=== PATIENT | male | born 1945 | race Caucasian/White ===

== ENCOUNTER 2024-07-23 05:35 | Day surgery (SDC) | payer MEDICARE, BC ==
[2024-07-14 12:06] LABS: BASOPHILS % (AUTO) 0.7 % (0-1); EOSINOPHILS # (AUTO) 0.1 X10'3 (0-0.9); EOSINOPHILS % (AUTO) 1.9 % (0-6); LYMPHOCYTES % (AUTO) 30.2 % (21-51); MEAN CORPUSCULAR HEMOGLOBIN 30.1 PG (27.0-31.0); MEAN CORPUSCULAR HGB CONC 33.2 g/dL (33.0-36.5); MEAN CORPUSCULAR VOLUME 90.5 FL (78-98); MEAN PLATELET VOLUME 8.8 FL (7.4-10.4); MONOCYTES # (AUTO) 0.6 X10'3 (0-0.9); MONOCYTES % (AUTO) 9.9 % (2-12); NEUTROPHILS # (AUTO) 3.8 X10'3 (1.8-7.7); NEUTROPHILS % (AUTO) 57.3 % (42-75); PRE OP HEMATOCRIT 41.5 % (42.0-52.0); PRE OP HEMOGLOBIN 13.8 g/dL (14.0-17.9); PRE OP PLATELET COUNT 214 X10'3 (140-440); PRE OP WHITE BLOOD COUNT 6.5 10'3 (4.8-10.8); RED BLOOD COUNT 4.58 X10'6 (4.70-6.10); RED CELL DISTRIBUTION WIDTH 14.5 % (11.5-14.5)
[2024-07-14 12:18] LABS: ALBUMIN 3.5 G/DL (3.4-5.0); ALBUMIN/GLOBULIN RATIO 1.1 (1.1-1.5); ALKALINE PHOSPHATASE 63 IU/L (46-116); BLOOD UREA NITROGEN 14 MG/DL (7-18); BUN/CREATININE RATIO 18.7 (10.0-20.0); CHLORIDE 109 MMOL/L (99-107); CREATININE 0.75 MG/DL (0.60-1.10); PRE OP ALT 18 U/L (30-65); PRE OP ANION GAP 9 (8-16); PRE OP AST 15 U/L (10-37); PRE OP BILIRUB, TOTAL 0.4 MG/DL (0.0-1.0); PRE OP GLUCOSE 91 MG/DL (70-104); PRE OP POTASSIUM 4.3 MMOL/L (3.4-5.1); PRE OP SODIUM 142 MMOL/L (135-145); TOTAL CARBON DIOXIDE 24.2 MMOL/L (24-32); TOTAL PROTEIN 6.8 G/DL (6.4-8.2); eGFR > 90 ML/MIN
[2024-07-23] VITALS (31 sets, daily range): BP systolic 95–164; BP diastolic 37–94; PULSE 17–85; RESP 13–18; TEMP 96.9–98.2; O2SAT 89–98
[~2024-07-23] VITALS: Ht 190.5 cm; Wt 90.5 kg
[~2024-07-23 05:35] MED LIST: ASCO100031 PO; ASPI-611 PO; ERGO400C PO; FLAX10007 PO; MULT-1085 PO; VITA-268 PO
[2024-07-23] MEDS: ringers solution, lacted 1,000 ML IV SCH ×2 (06:12→18:50)
[2024-07-23] MEDS: famotidine 20mg tablet PO ONE (06:12)
[2024-07-23] MEDS: ceFAZolin 2gm in dextrose, iso 50 ML IV ONE (06:14)
[2024-07-23] MEDS ORDERED: INDOCYANINE GREEN 25 MG/10 ML VIAL IV ONE (06:47)
[2024-07-23] MEDS ORDERED: fluoroscein sod 10% (100mg/ml) 5ml vial ONE (06:47)
[2024-07-23] MEDS ORDERED: BUPIVAcaine 0.25% w/Epi /PF 30ml vial ONE (06:47)
[2024-07-23] MEDS ORDERED: BUPIVACAINE liposomal/PF 13.3 MG/ML 10mL vial IM ONE (06:48)
[2024-07-23] MEDS ORDERED: propofol inj 20 ML IV ONE (07:27)
[2024-07-23] MEDS ORDERED: fentaNYL /PF 50mcg/ml 5ml ampule ONE (07:27)
[2024-07-23] MEDS ORDERED: rocuronium 10mg/ml inj IV ONE (07:27)
[2024-07-23] MEDS ORDERED: midazolam 1 mg/ML 2ml injection ONE (07:27)
[2024-07-23] MEDS ORDERED: dexamethasone sod phosphate 4mg/ml inj. ONE (07:31)
[2024-07-23] MEDS ORDERED: sevoflurane 250ml liquid IH ONE (08:11)
[2024-07-23] MEDS: BUPIVAcaine 0.25% w/Epi /PF 30ml vial IJ ONE (08:30)
[2024-07-23] MEDS ORDERED: HYDROmorphone/PF 0.2 MG/ML SYRINGE IV PRN (10:05)
[2024-07-23] MEDS ORDERED: hydrALAZINE 20mg/ml inj. IV PRN (10:05)
[2024-07-23] MEDS ORDERED: ondansetron/PF 4mg/2ml inj IV PRN ×2 (10:05→10:40)
[2024-07-23] MEDS ORDERED: meperidine/PF 25mg/ml syringe IV PRN (10:05)
[2024-07-23] MEDS ORDERED: ondansetron/PF 4mg/2ml inj ONE (10:13)
[2024-07-23] MEDS ORDERED: acetaminophen 1,000mg/100ml IV 100 ML IV ONE (10:13)
[2024-07-23] MEDS ORDERED: neostigmine methylsulfate 1 MG/ML 10ml vial ONE (10:31)
[2024-07-23] MEDS ORDERED: glycopyrrolate 0.2mg/ml inj ONE (10:32)
[2024-07-23] MEDS ORDERED: acetaminophen 325mg tablet PO PRN (10:40)
[2024-07-23] MEDS ORDERED: magnesium hydroxide 30ml (MOM) UD suspension PO PRN (10:40)
[2024-07-23] MEDS ORDERED: mag hydrox/Alum hydrox/simeth 30ml oral suspension PO PRN (10:40)
[2024-07-23] MEDS ORDERED: diphenhydrAMINE 25mg capsule PO PRN (10:40)
[2024-07-23] MEDS ORDERED: HYDROmorphone inj. 0.5 MG/0.5 ML DISP.SYRIN IV PRN (10:40)
[2024-07-23] MEDS ORDERED: HYDROcodone/acetaminophen 5mg/325mg tablet PO PRN (10:40)
--- NOTE | 2024-07-23 10:51 | OPERATIVE REPORT ---
Operative Report Providers to ~ Date of Procedure: July 23, 2024 Pre-Operative Diagnosis: Prostate cancer Post-Operative Diagnosis SAME as PRE-Op Procedure Performed Robotic assisted laparoscopic prostatectomy Surgeon: MD Assistant Naina Dyer MD Raven Jennings, NP Anesthesiologist: Wali Chau Type of Anesthesia: General Findings: Prostate removed without issue Complications None Estimated Blood Loss: Less than 50 cc Specimen Removed: Prostate Description of Procedure: Patient was brought to the operating room, given a general anesthetic, and placed in the supine position. He was prepped and draped in the normal sterile fashion. A timeout was performed. A field catheter was placed. An incision was made above the umbilicus. Verass needle was used the insuflate the abdomen. Then an 8 greenlandic robotic port was placed. We then placed 3 more robotic ports lateral to the median port. On the right a 12 greenlandic workforce development assistant port was placed under direct visualization. The patient was put into steep trendelenburg and the robot was docked. With the robot docked I used sharp dissection to drop the sigmoid colon. Once the sigmoid colon was dropped I made an incision in the peritoneum posteriorly and dissected to the seminal vesicles and vas deferns bilaterally. Once I was there I was able to dissect the posterior plan. Vas deferns were dissected bilaterally. I next turned my attention to the bladder. I dropped the bladder and approached the prostate from above opening the endopelvic fascia bilaterally with sharp dissection. Once this was completed and all pelvic floor muscles were brushed off the prostate I next turned to taking the bladder neck. Electrocautery was used to dissect the bladder neck until the catheter was reached, at which point the catheter was pulled up and the posterior bladder neck was dissected. Seminal vesicles and vas deferns bilaterally were both pulled up at this point. I next continued fully dissecting the posterior. The pedicles were taken at this point and the nerves were spared. I then used sharp dissection to take the dorsal venous complex, using a 3-0 v-lock suture to close the sinuses. The rest of the urethra was then taken with sharp dissection. The prostate was now free and moved out of the way, and double armed 3-0 v-loc suture was used to approximate the bladder neck to the urethra. I did this circumstantially until it was complete. This was tested with a new field catheter and was water tight. The prostate was placed in a specimen bag and the robot was undocked. The incision over the umbilicus was increased to allow the prostate to be removed, at which point it was removed. 2-0 vicryl suture was used to close the fascia, local anesthetic was injected into each wound, and 4-0 monocryl suture was used to close the skin with dermabond glue on the skin level. Counts repoted as correct: No LANETTE DYER MD July 23, 2024 10:51
[2024-07-23] MEDS: ketorolac trometh 15mg/ml vial 15 MG/ML ML IV ONE (11:36)
[2024-07-23] MEDS: morphine 2 MG/ML inj. syringe IV PRN (11:40)
[2024-07-23] MEDS: morphine 4 MG/ML inj SYRINge IV PRN (11:49)
[2024-07-23] MEDS: HYDROmorphone/PF 0.2 MG/ML SYRINGE IV PRN (12:10)
[2024-07-23] MEDS: docusate sod 100mg capsule PO SCH (21:05)
[2024-07-23] MEDS: heparin, porcine 5000 units/ml vial SQ SCH (21:06)
[2024-07-23] MEDS: temazepam 15mg capsule PO PRN (21:06)
[2024-07-24 02:00] VITALS: BP 107/54; PULSE 59; RESP 14; TEMP 98.4; O2SAT 96
[2024-07-24 05:56] LABS: BASOPHILS % (AUTO) 0.1 % (0-1); EOSINOPHILS % (AUTO) 0.1 % (0-6); HEMATOCRIT 36.1 % (42.0-52.0); HEMOGLOBIN 12.1 g/dl (14.0-17.9); LYMPHOCYTES % (AUTO) 7.9 % (21-51); MEAN CORPUSCULAR HEMOGLOBIN 30.3 PG (27.0-31.0); MEAN CORPUSCULAR HGB CONC 33.4 g/dL (33.0-36.5); MEAN CORPUSCULAR VOLUME 90.5 FL (78-98); MEAN PLATELET VOLUME 8.7 FL (7.4-10.4); MONOCYTES # (AUTO) 1.2 X10'3 (0-0.9); MONOCYTES % (AUTO) 9.2 % (2-12); NEUTROPHILS # (AUTO) 10.9 X10'3 (1.8-7.7); NEUTROPHILS % (AUTO) 82.7 % (42-75); PLATELET COUNT 188 X10'3 (140-440); RED BLOOD COUNT 3.99 X10'6 (4.70-6.10); RED CELL DISTRIBUTION WIDTH 14.4 % (11.5-14.5); WHITE BLOOD COUNT 13.2 X10'3 (4.5-11.0)
[2024-07-24 06:00] VITALS: BP 121/56; PULSE 54; RESP 13; TEMP 97.9; O2SAT 93; O2SAT 94
[2024-07-24 06:17] LABS: ANION GAP 6 (8-16); BLOOD UREA NITROGEN 17 MG/DL (7-18); BUN/CREATININE RATIO 15.5 (10.0-20.0); CALCIUM 8.7 MG/DL (8.5-10.1); CHLORIDE 102 MMOL/L (99-107); GLUCOSE 125 MG/DL (70-104); POTASSIUM 4.3 MMOL/L (3.5-5.1); SODIUM 136 MMOL/L (135-145); TOTAL CARBON DIOXIDE 28.3 MMOL/L (24-32); eCRCL 66 ML/MIN; eGFR 65 ML/MIN
[2024-07-24 07:00] VITALS: RESP 13; O2SAT 94
--- NOTE | 2024-07-24 07:54 | DISCHARGE SUMMARY ---
Discharge Summary Providers to CC ~ Discharge Summary Assessment Prostate cancer s/p robotic assisted laparoscopic radical prostatectomy. Admission Diagnosis: Prostate cancer Hospital Course DATE OF ADMISSION: 07/23/24 DATE OF DISCHARGE: 07/24/24 Patient was admitted after surgery. He tolerated a diet, ambulated with pain controlled, and had appropriate labs after surgery. Discharge Diagnosis\Comment: Prostate cancer Operations\Procedures: 07/23/24: Robotic assisted laparoscopic radical prostatectomy Consultants: None Complications: None Condition on DC: Stable Discharge Summary: Patient is feeling well today and ready for discharge home. Ambulating and tolerating a diet. General: Awake and Alert, no acute distress. HEENT: Conjunctiva pink, Sclera clear, Mucus Membranes moist. Neck: Supple without masses and tenderness. Resp: Unlabored Heart: Regular Rate and rhythm Abdomen: Soft and non tender no organomegaly Extremities: No cyanosis,clubbing or edema. Skin: Warm and Dry. *Problems/Diagnosis: (1) Prostate cancer Status: Chronic Assessment & Plan: S/P removal of prostate. Ok for discharge home today with field catheter. Total Time Spent on D/C: Up to 30 Minutes LANETTE OH MD July 24, 2024 07:53
[2024-07-24 10:00] VITALS: BP 121/64; PULSE 58; RESP 18; TEMP 97.9; O2SAT 93
== END 2024-07-24 11:00 | disposition home or self-care (01) ==
LOC: PAS 05:35 → ORTHO 4S 10:46 → PAS 07-24 11:00
PROVIDERS: ATTEND Urology
DX: C61 Malignant neoplasm of prostate (principal); Z79.899 Other long term (current) drug therapy; Z87.891 Personal history of nicotine dependence; Z98.890 Other specified postprocedural states
CPT/HCPCS: 36415; 55866; 80048; 80053; 82948; 85025; 86885; 86900; 86901; 87081; A4215; A4338; A4357; A4358; A4618; A7000; J0131; J0665; J0666; J1100; J1171; J1644; J1885; J2250; J2270; J2405; J2704; J2710; J3010; J3490; J7030; J7120; Z7506; Z7508; Z7512; Z7610; G0378